=== PATIENT | male | born 1990 | race Hispanic/Latino ===

== ENCOUNTER 2022-11-18 11:59 | Emergency (ER) | payer OTHER ==
[2022-11-18] MEDS ORDERED: Boostrix 0.5 ML (Tdap) VIAL (>/=7 yrs of age) ONE (15:07)
[2022-11-18] MEDS ORDERED: CEFAZOLIN 2 GM VIAL ONE (15:07)
== END 2022-11-18 17:14 | disposition short-term general hospital (02) ==
LOC: ERS 11:59
DX: S61.240A Puncture wound with foreign body of right index finger without damage to nail, initial encounter (principal); I10 Essential (primary) hypertension; F17.200 Nicotine dependence, unspecified, uncomplicated; Z23 Encounter for immunization; W45.8XXA Other foreign body or object entering through skin, initial encounter
CPT/HCPCS: 90471; 90715; 96374